=== PATIENT | male | born 1970 | race Two or more races ===

== ENCOUNTER 2019-04-13 08:06 | Day surgery (SDC) | payer BC ==
[2019-04-13 08:59] VITALS: BMI 29.0
[2019-04-13] MEDS ORDERED: BUPIVACAINE HCL/PF 2.5 MG/ML - 30 ML VIAL IJ ONE (09:33)
[2019-04-13] MEDS ORDERED: LIDOCAINE HCL 1% PRESERVATIVE FREE - 30ML VIAL ONE (09:39)
[2019-04-13] MEDS ORDERED: MIDAZOLAM HCL 2 MG/2 ML SINGLE DOSE VIAL ONE ×2 (10:15→11:27)
[2019-04-13] MEDS ORDERED: PROPOFOL 20 ML ONE ×2 (10:15→11:23)
[2019-04-13] MEDS ORDERED: fentaNYL CITRATE 250 MCG/5 ML VIAL ONE (10:15)
[2019-04-13] MEDS ORDERED: ceFAZolin SODIUM 1 GM VIAL ONE (10:31)
[2019-04-13] MEDS ORDERED: DEXAMETHASONE SOD PHOSPHATE 4 MG/1 ML VIAL ONE (10:51)
[2019-04-13] MEDS ORDERED: ONDANSETRON 4 MG/2 ML VIAL ONE ×2 (10:51→12:02)
[2019-04-13] MEDS ORDERED: KETOROLAC TROMETHAMINE 30 MG/1 ML VIAL ONE (10:51)
[2019-04-13] MEDS ORDERED: BUPIVACAINE HCL/PF 0.25% (2.5MG/ML) 10 ML VIAL IJ ONE (11:26)
[2019-04-13] MEDS ORDERED: LIDOCAINE HCL 1%, 10 MG/ML (50 mL VIAL) IJ ONE (11:26)
[2019-04-13] MEDS ORDERED: oxyCODONE HCL 5 MG TABLET PO PRN (11:50)
[2019-04-13] MEDS ORDERED: ONDANSETRON 4 MG/2 ML VIAL IVPUSH PRN (11:50)
[2019-04-13] MEDS ORDERED: LACTATED RINGERS SOLUTION 1,000 ML IV SCH (12:00)
--- NOTE | 2019-04-13 12:06 | OP ---
DATE OF OPERATION: 04/13/2019 SURGEON: Sunny Erci MD EDI COORDINATOR: HIRAM Ivory PREOPERATIVE DIAGNOSIS: Right elbow distal biceps tear. POSTOPERATIVE DIAGNOSIS: Right elbow distal biceps tear. PROCEDURE PERFORMED: Open repair of distal biceps. FINDINGS: Avulsed biceps tendon distal insertion. DESCRIPTION PROCEDURE: Informed consent was obtained. The patient was taken to the operating room, where the right upper extremity was prepped and draped in a sterile fashion. A tourniquet was placed on the upper arm and inflated to 250 mmHg. A horizontal incision was made at the area of the elbow crease. The biceps tendon stump was identified and remaining soft tissue was debrided around it, creating a fresh edge. The radial insertion of the biceps was identified. A Ramos elevator was used to remove soft tissue. It was isolated and Army-Balm. The biceps stump was repaired by using 2-0 FiberWire with an interlocking Krackow stitch and interconnected to a ToggleLoc device. The insertion into the radial neck was cleared. A ToggleLoc system was used, starting with a guidewire, followed by a 7-mm drill bit for the proximal cortex and a 4 mm to the distal. The ToggleLoc device was placed through both cortices and locked on the posterior cortex. It was then tightened, bringing the tendon into the anterior cortex, creating a soft tissue inside bleeding bone. This was then locked into place. The wound was irrigated with copious multiple times during the surgery. The tourniquet was then released. There was no evidence of active arterial bleeding. A layered closure of 2-0 Vicryl and 3-0 plain was performed. A sterile dressing and splint were placed. The patient was transferred to Recovery without complication. SUNNY ERIC M.D. [id number]
[2019-04-13] MEDS ORDERED: oxyCODONE HCL 5 MG TABLET PO ONE (13:00)
[2019-04-13 13:02] VITALS: PULSE 80; TEMP 97.5
[2019-04-13] MEDS ORDERED: oxyCODONE HCL 5 MG TABLET ONE (13:07)
[2019-04-13 14:33] VITALS: BP 138/79
== END 2019-04-13 14:30 | disposition home or self-care (01) ==
LOC: FASU 08:06
PROVIDERS: ATTEND Orthopaedic Surgery
PROC: 0LM30ZZ Reattachment of Right Upper Arm Tendon, Open Approach (ICD-10-PCS; principal; 2019-04-13 10:49)
DX: S46.211A Strain of muscle, fascia and tendon of other parts of biceps, right arm, initial encounter (principal); X58.XXXA Exposure to other specified factors, initial encounter; Y93.9 Activity, unspecified; Y92.9 Unspecified place or not applicable
CPT/HCPCS: 94760